=== PATIENT | female | born 1970 | race African-American/Black ===

== ENCOUNTER → 2022-04-24 12:00 | Outpatient (CLI) | payer OTHER, SELFPAY ==
--- NOTE | ~2022-04-24 | US_ITS ---
EXAMINATION: US thyroid DATE: 04/24/2022 12:18 INDICATION: Nontoxic goiter, unspecified. TECHNIQUE: Multiple ultrasound images of the thyroid were obtained. COMPARISON: Ultrasound 12/24/2014 FINDINGS: The right thyroid lobe measures 6.7 x 1.9 x 3.0 cm. The left thyroid lobe measures 6.2 x 1.8 x 2.6 c m. The thyroid demonstrates coarsened echotexture. No discrete nodule. Vascularity is increased. IMPRESSION: 1. 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 Reviewed, dictated and finalized at location A. PLANT OPERATOR
== END ==
PROVIDERS: PCP Internal Medicine Endocrinology, Diabetes & Metabolism; Visit Provider Internal Medicine Endocrinology, Diabetes & Metabolism
DX: E04.9 Nontoxic goiter, unspecified (principal)
CPT/HCPCS: 76536

== ENCOUNTER → 2023-04-30 12:26 | Outpatient (CLI) | payer OTHER, SELFPAY ==
--- NOTE | ~2023-04-30 | DEXA_ITS ---
Bone Density Report Name: LUDIN MORENO Age: 53 Sex: Female Ethnicity: Black Date of : 1970 Indication: postmenopausal; screening for osteoporosis; cancer; hysterectomy; Referring Provider[facility] Study: Bone densitometry was performed. Exam Date: April 30, 2023 Accession number: [id number] Bone Density: Region BMD T-score Z-score Classification AP Spine (L1-L4) 1.461 3.8 3.7 Normal Femoral Neck (Left) 0.916 0.6 0.3 Normal Total Hip (Left) 1.118 1.4 0.9 Normal Femoral Neck (Right) 0.911 0.6 0.3 Normal Total Hip (Right) 1.132 1.6 1.0 Normal Total Hip Mean 1.125 1.5 1.0 Normal World Health Organization criteria for BMD impression classify patients as: Normal (T-score at or above -1.0), Osteopenia (T-score between -1.0 and -2.5), or Osteoporosis (T-score at or below -2.5). 10-year Fracture Risk: FRAX not reported because: All T-scores for Spine Total, Hip Total, Femoral Neck at or above -1.0 Clinical Information Provided by Patient: Has the following medical conditions: Cancer, Hysterectomy, BILATERAL BREAST CA LUMPECTOMIES WITH RADIATION 2019 Patient maximum height was 68.0 Menopause Age: 51 Drinks caffeinated beverages Onset of menses at age 14 Number of children 4 Impression: The patient has normal bone mass. Discussion: BONE DENSITY IS ABOVE THE MINIMUM DESIRABLE LEVEL AT ALL SKELETAL SITES TESTED. This patient?s bone mineral density is above the minimum desirable level (T-score -1.0 or better) at all sites measured. The patient should follow a healthful lifestyle (good nutrition with adequate calcium and vitamin D, and appropriate weight-bearing exercise). Follow-Up: Consider repeating this study in 5 years or sooner if there is some new clinical indication. Reported by: [facility] on 04/30/2023 1:09:00 PM. Reviewed, dictated and finalized at location ASebas [place]ACK[place]URN
--- NOTE | ~2023-04-30 | US_ITS ---
Thyroid ultrasound. Clinical History: Hyperthyroidism Findings: Real-time sonography of the thyroid gland was performed. The right lobe measures 5.8 x 2.1 x 2.6 cm. The left lobe measures 6.0 x 1.5 x 3.1 cm. The isthmus is 1 mm in AP diameter. There is a 5 mm hypoechoic nodule at the left mid to upper pole. Impression: Subcentimeter left thyroid lobe nodule, which requires no further follow-up. Enlarged thyroid gland. Consider correlation with thyroid uptake scan, as indicated. Reviewed, dictated and finalized at location M. TS WRITER Impression: Subcentimeter left thyroid lobe nodule, which requires no further follow-up. Enlarged thyroid gland. Consider correlation with thyroid uptake scan, as indic ated.
== END ==
PROVIDERS: PCP Internal Medicine Endocrinology, Diabetes & Metabolism; Visit Provider Internal Medicine
DX: E89.41 Symptomatic postprocedural ovarian failure (principal); E05.90 Thyrotoxicosis, unspecified without thyrotoxic crisis or storm; E04.1 Nontoxic single thyroid nodule; E04.9 Nontoxic goiter, unspecified
CPT/HCPCS: 76536; 77080

== ENCOUNTER 2025-01-07 14:12 | Outpatient (CLI) | payer OTHER, SELFPAY ==
--- NOTE | ~2025-01-07 | XR_ITS ---
EXAM/ PROCEDURE: XR shoulder RT min 2V - 01/07/2025 14:32 CDT HISTORY: 54 years old Female with Acute pain of RT shoulder COMPARISON: None available TECHNIQUE: Three view(s) FINDINGS/ IMPRESSION: There are no fractures or dislocations.Joint space narrowing, subchondral sclerosis, subchondral cyst formation and osteophyte formation, compatible with mild osteoarthritis. Reviewed, dictated and finalized at location A.
--- NOTE | ~2025-01-07 | CT_ITS ---
EXAMINATION: CT diagnostic chest wo con DATE: 01/07/2025 14:34 INDICATION: Pulmonary nodule. TECHNIQUE: Computed tomography (CT) of the chest was performed without intravenous contrast. The dose -length product was 361.93 mGy-cm. Automated exposure control and iterative reconstruction technique were employed. COMPARISON: None FINDINGS: Heart size normal. No thoracic lymphadenopathy. Small hiatal hernia. There are calcified gr anulomas of the spleen. There is mild atherosclerosis of the aorta. No significant pleural or pericar dial effusion. There are calcified granulomas of the lungs. No endobronchial lesions. No pneumothorax . No focal airspace consolidation. There are a few small 2 mm nodules in the upper lobes, likely cecy gn. No follow-up required. No endobronchial lesions. IMPRESSION: 1. No acute cardiopulmonary disease. No suspicious pulmonary nodules or masses. Reviewed, dictated and finalized at location A.
== END 2025-01-07 14:13 | disposition home or self-care (01) ==
LOC: MICIMG 14:14
PROVIDERS: PCP Internal Medicine Endocrinology, Diabetes & Metabolism; Visit Provider Internal Medicine
DX: R91.1 Solitary pulmonary nodule (principal); M25.511 Pain in right shoulder
CPT/HCPCS: 71250; 73030